=== PATIENT | female | born 1960 | race Caucasian/White ===

== ENCOUNTER 2021-05-01 22:43 | Inpatient (IN) | payer OTHER ==
[~2021-05-01] VITALS: Ht 160 cm; Wt 106.4 kg
[2021-05-01 22:43] VITALS: BP 141/90
[~2021-05-01 22:43] MED LIST: ASPI-929 PO; ATOR20TA PO; CLOP75TA PO; DABI150C PO; FAMO-75 PO; GABA600T7 PO; METO25TA4 PO; MORP100T27 PO; SOTA80TA PO
--- NOTE | 2021-05-01 22:43 | NUR ---
ARRIVAL ARRIVED VIA EMS. ALERT AND ORIENTED X3. PRODUCTIVE COUGH WITH CLEAR SPUTUM, CONGESTION, AND EDEMA TO LOWER EXTREMITIES X2. TEMP 97.6, O2 SAT 94%.
[2021-05-02] VITALS (7 sets, daily range): BP systolic 130–160; BP diastolic 78–91
[2021-05-02 00:05] LABS: BASOPHIL % 0.3 % (0.0-0.2); EOSINOPHIL # 0.1 10^3/uL (0.0-0.2); EOSINOPHIL % 1.2 % (0.0-5.0); LYMPHOCYTES # 0.99 10^3/uL1 (1.0-4.8); LYMPHOCYTES % 10.6 % (24.0-44.0); MEAN CORP HGB 27.2 pg (26-34); MONOCYTES # 0.4 10^3/uL (0.3-0.8); MONOCYTES % 3.9 % (5.0-12.0); NEUTROPHIL # 7.8 10^3/uL (1.8-7.7); NEUTROPHILS % 83.9 % (41.0-85.0); PLATELET COUNT 275 10^3/uL (150-400); RED CELL DISTRIBUTION WIDTH 13.5 % (11.5-14.5)
--- NOTE | 2021-05-02 00:15 | NUR ---
EKG EKG COMPLETED.
--- NOTE | 2021-05-02 00:16 | ER.PDOC ---
General Chief Complaint: Requesting Medical Care Stated Complaint: DIFF BREATHING Time seen by MD: 23:45 Source: patient Exam Limitations: no limitations History of Present Illness Initial Comments Difficulty breathing since this morning. Patient has a 30-year pack smoking history. She also has CHF and A. fib. Patient received Lasix 40 mg IV and breathing treatment in the ambulance. Severity: moderate Prior Episodes/Possible Cause: occasional episodes, chronic episodes Modifying Factors: improves with coughing Associated Symptoms: edema, wheezing Prior symptoms/Treatment: Similar symptoms previous, Recenly Seen, Treated by Doctor, Recently Hospitalized Allergies: Coded Allergies: Sulfa (Sulfonamide Antibiotics) (Verified Allergy, Unknown, 07/22/16) Home Meds Active Scripts Famotidine (PEPCID) 20 Mg Tablet, 1 TAB PO BID, #60 TAB 2 Refills Prov:MARILIA HONG MD 10/27/20 Atorvastatin 20MG (LIPITOR 20MG) 20 Mg Tablet, 40 MG PO HS for 30 Days, #30 TAB Prov:MARILIA HONG MD 10/27/20 Clopidogrel Bisulfate (CLOPIDOGREL) 75 Mg Tablet, 75 MG PO DAILY for 30 Days, #30 TAB Prov:MARILIA HONG MD 10/27/20 Aspirin (ASPIRIN EC) 81 Mg Tablet.dr, 81 MG PO DAILY for 30 Days, #30 TAB 2 Refills Prov:MARILIA HONG MD 10/27/20 Reported Medications Dabigatran Etexilate Mesylate (PRADAXA) 150 Mg Capsule, 1 CAP PO BID, #180 CAP 1 Refill 07/22/16 Morphine Sulfate (MS CONTIN) 100 Mg Tablet.er, 1 TAB PO BID, #60 TAB 07/22/16 Sotalol Hcl (SOTALOL) 80 Mg Tablet, 1 TAB PO BID, #180 TAB 3 Refills 07/22/16 Gabapentin (GABAPENTIN) 600 Mg Tablet, 1 TAB PO BID, #90 TAB 3 Refills 07/22/16 Past Medical History Medical History: arrhythmia, congestive heart failure, hypertension, other Surgical History: cholecystectomy, , tonsillectomy Family History Significant Family History: no pertinent family hx Social History Smoking: greater than 1 pack/day Alcohol Use: none Drug Use: none Review of Systems Constitutional: no symptoms reported EENTM: no symptoms reported Respiratory: see HPI Cardiovascular: no symptoms reported Gastrointestinal: no symptoms reported All Other Systems: Reviewed and Negative Physical Exam General Appearance: No Apparent Distress, WD/WN Neck: Non-Tender, Full Range of Motion, Supple, Normal Inspection Respiratory: chest non-tender, no respiratory distress, no accessory muscle use, decreased breath sounds Cardiovascular: Normal Peripheral Pulses, Regular Rate, Rhythm, No Edema, No Gallop, No JVD, No Murmur Gastrointestinal: Normal Bowel Sounds, No Organomegaly, No Pulsatile Mass, Non Tender, Soft Extremities: Normal Range of Motion, Non-Tender, Normal Inspection, No Calf Tenderness, Normal Capillary Refill, Pedal Edema Neurologic/Psychiatric: termite technician II-XII NML as Tested, No Motor/Sensory Deficits, Alert, Normal Mood/Affect, Oriented x 3 Skin: Normal Color, Warm/Dry Results/Orders Results/Orders Orders - YUDELKA HOFFMANN MD Cbc With Auto Diff (05/01/21 23:18) Comprehensive Metabolic Panel (05/01/21 23:18) Creatine Kinase (05/01/21 23:18) Creatine Kinase Mb (05/01/21:18) Probnp B-Type Scarifier Operator (05/01/21 23:18) PT (05/01/21 23:18) Partial Thromboplastin Time. (05/01/21 23:18) Ekg-Routine (05/01/21 23:18) Xr Chest 1v (05/01/21 23:18) Troponin I High Sensitivity (05/01/21 23:18) Covid19 Antigen [place] (05/01/21 23:38) Arterial Blood Gas (05/01/21 23:39) Admit Orders (05/02/21 01:37) Bedrest With Brp (05/02/21 01:37) Scd's While In Bed (05/02/21 01:37) Potassium Chloride (Klor-Con 10) (05/02/21 01:39) Vital Signs Date Time Temp Pulse Resp B/P (MAP) Pulse Ox O2 Delivery O2 Flow Rate FiO2 05/02/21 00:02 97.6 74 20 94 05/01/21 22:43 97.6 74 20 05/01/21 22:43 97.6 69 20 141/90 (107) 94 Room Air Laboratory Tests Test 05/01/21 00:13 05/01/21 23:50 05/02/21 00:00 SARS-CoV-2 Antigen (Rapid) NEGATIVE (NEGATIVE) White Blood Count 9.3 10^3/uL (4.5-11.0) Red Blood Count 5.96 10^6/uL (4.00-5.20) H Hemoglobin 16.2 g/dL (12.0-15.0) H Hematocrit 52.7 % (36.0-46.0) H Mean Corpuscular Volume 88.4 fL (78-100) Mean Corpuscular Hemoglobin 27.2 pg (26-34) Mean Corpuscular Hemoglobin Concent 30.7 g/dL (33-36.5) L Red Cell Distribution Width 13.5 % (11.5-14.5) Platelet Count 275 10^3/uL (150-400) Mean Platelet Volume 9.7 fL (7.8-11.0) Neutrophils (%) (Auto) 83.9 % (41.0-85.0) Lymphocytes (%) (Auto) 10.6 % (24.0-44.0) L Monocytes (%) (Auto) 3.9 % (5.0-12.0) L Neutrophils # (Auto) 7.8 10^3/uL (1.8-7.7) H Lymphocytes # (Auto) 0.99 10^3/uL1 (1.0-4.8) L Monocytes # (Auto) 0.4 10^3/uL (0.3-0.8) Absolute Immature Granulocyte (auto 0.01 10^3 u/L (0-2) Absolute Eosinophils (auto) 0.1 10^3/uL (0.0-0.2) Immature Granulocytes % 0.10 % (0.00-0.50) Eosinophils % 1.2 % (0.0-5.0) Basophils % 0.3 % (0.0-0.2) H Basophils # 0.0 10^3/uL (0.0-0.1) Prothrombin Time 12.6 SEC (9.6-12.0) H Prothrombin Time INR (Non-Therap) 1.2 Activated Partial Thromboplast Time 36.8 SEC (24.67-30.72) Sodium Level 137 mmol/L (132-145) Potassium Level 3.3 mmol/L (3.6-5.2) L Chloride Level 96.0 mmol/L (96-109) Carbon Dioxide Level 30.1 mmol/L (20.0-32) Anion Gap 14.2 Blood Urea Nitrogen 6 mg/dL (7-18) L Creatinine 0.82 mg/dL (0.59-1.40) Estimated GFR () 85.5 (>/=60) Est GFR (CKD-EPI)(Non-Afr [place]) 70.6 (>/=60) BUN/Creatinine Ratio 7.0 Glucose Level 126 mg/dL (70-110) H Calcium Level 9.0 mg/dL (8.4-10.5) Total Bilirubin 1.3 mg/dL (0.2-1.0) H Aspartate Amino Transferase (AST) 18 U/L (0-35) Alanine Aminotransferase (ALT) 17 U/L (12-78) Alkaline Phosphatase 136 U/L (50-136) Total Creatine Kinase 37 U/L (26-192) Creatine Kinase MB 1.0 ng/mL (0.5-3.6) Troponin I High Sensitivity 5 ng/L (0-50) Pro-B-Type Natriuretic Peptide 1412 pg/mL (0-125) H Total Protein 8.3 g/dL (6.4-8.2) H Albumin 3.6 g/dL (3.4-5.0) Globulin 4.7 Albumin/Globulin Ratio 0.765 Blood Gas Sample Site RT RADIAL ARTERY Blood pH 7.434 (7.350-7.450) Blood Gas PCO2 33.3 mmHg (35.0-45.0) L Blood Gas PO2 53.2 mmHg (80.0-100.0) L Blood Gas HCO3 21.8 mmol/L (22.0-26.0) L Blood Gas Base Excess -1.5 mmol/L (-2.0-2.0) Rahat Test POSITIVE Arterial Blood Oxygen Saturation 87.0 % (94.0-97.00) L Deoxyhemoglobin 12.6 % (0.0-5.0) H Carboxyhemoglobin 2.7 % (0.0-3.9) Methemoglobin 0.3 % (0.00-5.0) Total Hemoglobin 16.9 % (12.0-17.8) Total Oxygen Concentration 20.0 % (13.5-17.5) H Blood Gas Temperature 37.0 FiO2 21 % (20-101) Total Carbon Dioxide 22.8 mmol/L (23-27) L EKG/XRAY/CT/US EKG: no ST T wave changes EKG Comments: HR 62, A fib ER DEPART Departure Time of Disposition: 01:34 Disposition: 09 ADMITTED INPATIENT Impression: Primary Impression: Acute respiratory failure with hypoxia Additional Impression: CHF exacerbation Condition: Stable Referrals: CHRISTIAN JOVEL PA-C (PCP) PRIMARY CARE PROVIDER Comments Admitted to Dr. Lara Duration or Time Spent with Pa: 60 min Critical Care Note Total Time (mins): 60 Problem Qualifiers Additional Impression: CHF exacerbation Heart failure type: unspecified Qualified Codes: I50.9 - Heart failure, unspecified YUDELKA HOFFMANN MD May 02, 2021 00:16
[2021-05-02 00:34] LABS: CARBON DIOXIDE 30.1 mmol/L (20.0-32)
[2021-05-02 01:25] LABS: ABG PCO2 33.3 mmHg (35.0-45.0); ABG PH 7.434 (7.350-7.450); BE(B) -1.5 mmol/L (-2.0-2.0); HCO3act 21.8 mmol/L (22.0-26.0); pO2 53.2 mmHg (80.0-100.0)
[2021-05-02] MEDS ORDERED: KLOR-CON 10 PO STA (01:39)
[2021-05-02] MEDS ORDERED: KLOR-CON 10 PO ONE (02:24)
--- NOTE | 2021-05-02 02:30 | NUR ---
DIET SANDWHICH, CHIPS, AND FRUIT CUP WITH FLUIDS OFFERED.
[2021-05-02] MEDS ORDERED: GABA600T7 PO (02:35)
[2021-05-02] MEDS ORDERED: FURO-81 PO (02:35)
[2021-05-02] MEDS ORDERED: BUPR8TAB SL (02:35)
--- NOTE | 2021-05-02 02:41 | NUR ---
REPORT CALLED REPORT TO JOSE R MOON. TRANSPORTED TO MED SURG VIA STRETCHER BY Gisselle MUNIZ RN.
--- NOTE | 2021-05-02 07:34 | DIREP ---
PROCEDURE:CHEST 1 VIEW COMPARISON:[facility], CR, XRAY CHEST 2 VWS, 01/11/2021, 03:20 PM. INDICATIONS:Shortness of breath FINDINGS: Portable frontal view of the chest obtained at 11:28 p.m. On 05/01/2021 is provided for review at 7:27 a.m. On 05/02/2021. LUNGS/PLEURA:Shallow depth of inspiration with crowding of the central pulmonary markings. Mild subsegmental atelectasis and/or scarring in the lung bases. Otherwise clear. No focal consolidation, pleural, or pneumothorax. VASCULATURE:Normal. Unremarkable pulmonary vasculature. CARDIAC:Heart size is accentuated by low lung volumes and portable technique, but felt within normal limits. MEDIASTINUM:Normal. No visible mass or adenopathy. BONES:Stable degenerative changes involving the shoulders and thoracic spine. No acute abnormality. OTHER:Monitor leads overlie the chest. CONCLUSION: 1. Low lung volumes with mild subsegmental atelectasis and/or scarring in the lung bases. The lungs are otherwise clear. 2. Heart size and pulmonary vasculature are within normal limits given low lung volumes and portable technique. Dictated by: Sd Aguirre MD on 05/02/2021 at 07:31 AM
--- NOTE | 2021-05-02 07:59 | PCM.EKG ---
[facility] Test Date: 2021-05-02 Test Time: 00:42:33 Pat Name: KINSEY JOSEPH Department: Room: 338 Gender: F Straightener Hand: : 1960 Requested By: YUDELKA HOFFMANN Order Number: [id number] Reading MD: Yudelka HOFFMANN Measurements Intervals [place] Rate: 62 P: MD: QRS: 27 QRSD: 92 T: -30 QT: 452 QTc: 459 Interpretive Statements Atrial fibrillation Nonspecific T abnormalities, diffuse leads Compared to ECG 10/23/2020 01:54:15 T-wave abnormality now present Electronically Signed On 05-03-2021 7:16:13 BRUSH MAKER by Yudelka HOFFMANN Please click the below link to view image of tracing.
[2021-05-02] MEDS ORDERED: KCL 20MEQ/100ML 100 ML IV ONE (11:30)
[2021-05-02] MEDS ORDERED: KLOR-CON 10 PO SCH (11:30)
[2021-05-02] MEDS ORDERED: LASIX PO SCH ×2 (11:30→13:11)
[2021-05-02] MEDS ORDERED: MAGNESIUM-D5W 1 GM/100 ML SOLN 100 ML IV ONE ×2 (11:30→17:31)
--- NOTE | 2021-05-02 11:53 | NUR ---
DISCHARGE PLANNING CM VISITED WITH PATIENT ABOUT DISCHARGE PLANS AND NEEDS. PATIENT CURRENTLY [email or web address] WITH SPOUSE AND GRANDSON IN [place]. PATIENT IND WITH [facility] AND SEE'S CHRISTIAN JOVEL NP .PATIENT EDUCATED ON RESOURCES AVAILABLE. REPORTS HAS HAD [facility] IN PAST AND DENIES ANY SERVICES OFFERED. PATIENT SIGNS [facility] CHOICE LETTER OF THE SAME. AGREEABLE TO HAVE O2 ROTECHFOR O2 @DISCHARGE IF NEEDED. DENIES ANY OTHER CM NEEDS.
[2021-05-02] MEDS ORDERED: LASIX ONE (12:44)
[2021-05-02] MEDS ORDERED: NS 250ML 250 ML ONE (12:45)
[2021-05-02] MEDS: BETAPACE PO SCH ×2 (12:48→21:51)
--- NOTE | 2021-05-02 14:52 | PCM.HP ---
HISTORY & PHYSICAL HISTORY & PHYSICAL DATE OF ADMISSION: 05/01/2021 Date of service 05/02/2021 CHIEF COMPLAINT: Woke up with shortness of breath Last night HISTORY OF PRESENT ILLNESS: 60-year-old female with previous history of coronary artery disease status post PTCA and stent placement to diagonal artery diastolic congestive heart failure possible peripheral arterial disease and chronic atrial fibrillation came to the ER with a complaint of this shortness of breath last night and patient was evaluated found to have elevated BNP and volume overloaded therefore patient Was admitted for further management patient denies any chest pain have intermittent cough has orthopnea and denies any effort angina but has effort dyspnea since last night with minimal exertion has been having Severe shortness of breath No fever chills or rigors have clear sputum with cough intermittently, ALLERGIES: Allergic to sulfa medication CURRENT MEDICATIONS: Aspirin 81 mg daily, atorvastatin 40 mg daily, clopidogrel 75 mg daily, Lasix 40 mg daily, Neurontin 600 mg 3 times daily, sotalol 80 mg p.o. twice daily, Pr adaxa 150 mg twice daily PAST MEDICAL HISTORY: Chronic diastolic congestive heart failure Chronic atrial fibrillation Coronary artery disease s/p PTCA and stent placement Tobacco use disorder Chronic pain syndrome Dyslipidemia SOCIAL HISTORY: Still smoke half a pack a day No alcohol intake Living with her and grandson No regular exercise FAMILY HISTORY: Reviewed with patient noncontributory to the current illness REVIEW OF SYSTEMS: Intended to lose weight, normal appetite , Constipation,Nocturia several times, denies effort angina but complained of effort dyspnea No fever chills or rigors, cough with orthopnea and effort dyspnea,Dependent edema,Orthopnea VITAL SIGNS: Vital Signs Date Time Temp Pulse Resp B/P (MAP) Pulse Ox O2 Delivery O2 Flow Rate FiO2 05/02/21 12:48 157/87 05/02/21 12:37 97.9 63 18 157/87 (110) 95 05/02/21 09:31 18 92 05/02/21 09:30 63 18 92 Room Air 05/02/21 08:07 97.7 60 18 160/91 (114) 94 05/02/21 04:00 Mask 3.00 05/02/21 03:58 98.8 62 19 147/79 (101) 93 Mask 3.00 05/02/21 02:45 97.6 91 24 144/86 (105) 94 Room Air 05/02/21 00:02 97.6 74 20 94 05/01/21 22:43 97.6 74 20 05/01/21 22:43 97.6 69 20 141/90 (107) 94 Room Air PHYSICAL EXAMINATION: Sitting comfortably at the edge of the bed not dyspneic not cyanotic HEENT poor dentition pupil react light anicteric sclera no JVD noted neck supple Heart S1-S2 heard irregular rhythm no murmur appreciated Lungs bibasilar Rales present up to mid zone, No wheezes heard Abdomen obese nontender bowel sounds present no organomegaly appreciated Extremities 1+ edema present bilaterally no calf tenderness elicited LABORATORY DATA: Laboratory Tests Test 05/01/21 00:13 05/01/21 23:50 05/02/21 00:00 SARS-CoV-2 Antigen (Rapid) NEGATIVE (NEGATIVE) White Blood Count 9.3 10^3/uL (4.5-11.0) Red Blood Count 5.96 10^6/uL (4.00-5.20) Hemoglobin 16.2 g/dL (12.0-15.0) Hematocrit 52.7 % (36.0-46.0) Mean Corpuscular Volume 88.4 fL (78-100) Mean Corpuscular Hemoglobin 27.2 pg (26-34) Mean Corpuscular Hemoglobin Concent 30.7 g/dL (33-36.5) Red Cell Distribution Width 13.5 % (11.5-14.5) Platelet Count 275 10^3/uL (150-400) Mean Platelet Volume 9.7 fL (7.8-11.0) Neutrophils (%) (Auto) 83.9 % (41.0-85.0) Lymphocytes (%) (Auto) 10.6 % (24.0-44.0) Monocytes (%) (Auto) 3.9 % (5.0-12.0) Neutrophils # (Auto) 7.8 10^3/uL (1.8-7.7) Lymphocytes # (Auto) 0.99 10^3/uL1 (1.0-4.8) Monocytes # (Auto) 0.4 10^3/uL (0.3-0.8) Absolute Immature Granulocyte (auto 0.01 10^3 u/L (0-2) Absolute Eosinophils (auto) 0.1 10^3/uL (0.0-0.2) Immature Granulocytes % 0.10 % (0.00-0.50) Eosinophils % 1.2 % (0.0-5.0) Basophils % 0.3 % (0.0-0.2) Basophils # 0.0 10^3/uL (0.0-0.1) Prothrombin Time 12.6 SEC (9.6-12.0) Prothrombin Time INR (Non-Therap) 1.2 Activated Partial Thromboplast Time 36.8 SEC (24.67-30.72) Sodium Level 137 mmol/L (132-145) Potassium Level 3.3 mmol/L (3.6-5.2) Chloride Level 96.0 mmol/L (96-109) Carbon Dioxide Level 30.1 mmol/L (20.0-32) Anion Gap 14.2 Blood Urea Nitrogen 6 mg/dL (7-18) Creatinine 0.82 mg/dL (0.59-1.40) Estimated GFR () 85.5 (>/=60) Est GFR (CKD-EPI)(Non-Afr [place]) 70.6 (>/=60) BUN/Creatinine Ratio 7.0 Glucose Level 126 mg/dL (70-110) Calcium Level 9.0 mg/dL (8.4-10.5) Total Bilirubin 1.3 mg/dL (0.2-1.0) Aspartate Amino Transf (AST/SGOT) 18 U/L (0-35) Alanine Aminotransferase (ALT/SGPT) 17 U/L (12-78) Alkaline Phosphatase 136 U/L (50-136) Total Creatine Kinase 37 U/L (26-192) Creatine Kinase MB 1.0 ng/mL (0.5-3.6) Troponin I High Sensitivity 5 ng/L (0-50) Pro-B-Type Natriuretic Peptide 1412 pg/mL (0-125) Total Protein 8.3 g/dL (6.4-8.2) Albumin 3.6 g/dL (3.4-5.0) Globulin 4.7 Albumin/Globulin Ratio 0.765 Blood Gas Sample Site RT RADIAL ARTERY Blood Gas pH 7.434 (7.350-7.450) Blood Gas PCO2 33.3 mmHg (35.0-45.0) Blood Gas PO2 53.2 mmHg (80.0-100.0) Blood Gas HCO3 21.8 mmol/L (22.0-26.0) Blood Gas Base Excess -1.5 mmol/L (-2.0-2.0) Rahat Test POSITIVE Arterial Blood Oxygen Saturation 87.0 % (94.0-97.00) Deoxyhemoglobin 12.6 % (0.0-5.0) Carboxyhemoglobin 2.7 % (0.0-3.9) Methemoglobin 0.3 % (0.00-5.0) Total Hemoglobin 16.9 % (12.0-17.8) Total Oxygen Concentration 20.0 % (13.5-17.5) Blood Gas Temperature 37.0 FiO2 21 % (20-101) Total Carbon Dioxide 22.8 mmol/L (23-27) IMAGING: CONCLUSION: 1. Low lung volumes with mild subsegmental atelectasis and/or scarring in the lung bases. The lungs are otherwise clear. 2. Heart size and pulmonary vasculature are within normal limits given low lung volumes and portable technique. SUMMARY:60-year-old female with previous history of coronary artery disease diastolic heart failure and chronic tobacco use disorder presented to the ER with the complaint of progressively worsening shortness of breath and found to have elevated BNP admitted for further management ASSESSMENT/PLAN: Acute hypoxemic respiratory failure --Resolving Atelectasis Coronary artery disease with atypical presentation we will trend the troponin and consult spot facer Tobacco use disorder Dyslipidemia Hypertension Chronic atrial fibrillation Plan: Continue home medication, add Pulmicort aerosol EZ Pap treatment with chest physical therapy ,Consult cardiology Serial troponin DC planning in 24 to 48 hours LALA JARVIS MD May 02, 2021 14:51
[2021-05-02] MEDS ORDERED: PULMICORT IH ONE (16:26)
[2021-05-02] MEDS: PULMICORT IH SCH (16:41)
[2021-05-02] MEDS: NEURONTIN PO SCH ×2 (17:00→21:51)
[2021-05-02] MEDS ORDERED: NS 500ML 500 ML IV ONE (17:31)
[2021-05-02] MEDS ORDERED: MELATONIN PO PRN (21:00)
[2021-05-02] MEDS ORDERED: LIPITOR PO SCH (21:00)
[2021-05-03 00:37] VITALS: BP 112/73
--- NOTE | 2021-05-03 01:11 | CNH ---
DATE OF CONSULTATION: 05/02/2021 DICTATOR NAME: RAMBO ALVARADO DO REASON FOR CONSULTATION: Acute decompensated heart failure secondary to diastolic dysfunction. HISTORY OF PRESENT ILLNESS: This is a 60-year-old female who presented to the Emergency Room with progressively worsening shortness of breath with orthopnea and paroxysmal nocturnal dyspnea, which she has been experiencing for the last few days. Upon presentation, proBNP was noted to be significantly elevated at 1412. A diagnosis of acute decompensated heart failure was made and a consultation was placed to Cardiology service for evaluation. PAST MEDICAL HISTORY: Significant for: 1. Coronary artery disease with recent PCI to the first diagonal artery with a Resolute [place] 2.25 x 18 mm drug-eluting stent done 10/2020. 2. Chronic atrial fibrillation. 3. Chronic congestive heart failure. 4. Severe tricuspid regurgitation. 5. Hypertension. 6. Chronic opiate dependence. PAST SURGICAL HISTORY: 1. Cholecystectomy. 2. . 3. Tonsillectomy. 4. Hysterectomy. MEDICATIONS: She takes at home: 1. Pradaxa 150 mg p.o. b.i.d. 2. Sotalol 80 mg p.o. b.i.d. 3. Gabapentin. 4. Plavix 75 mg p.o. every day. 5. Aspirin 81 mg p.o. every day. 6. Lipitor 20 mg p.o. at bedtime. 7. Pepcid. ALLERGIES: SHE IS ALLERGIC TO SULFA MEDICATIONS. FAMILY HISTORY: She denies any family history of premature coronary artery disease or sudden cardiac . SOCIAL HISTORY: She admits to tobacco abuse, smokes 1 pack of cigarettes daily. Denies alcohol use, denies illicit drug use. REVIEW OF SYSTEMS: As per HPI and as per previous records. All systems are reviewed and negative for interval change. PHYSICAL EXAMINATION: VITAL SIGNS: Blood pressure is 130/78, respiratory rate is 18, pulse is 72, temperature is 98, pulse oximetry is 94% on room air. GENERAL: She is in no apparent distress, alert and oriented x3. HEENT: Normocephalic, atraumatic. Extraocular muscles intact. Pupils equally reactive to light and accommodation. CARDIAC: S1, S2, irregularly irregular plus 3/6 holosystolic murmur. No gallops, rubs or clicks. LUNGS: Decreased breath sounds bilaterally. No wheezing, rhonchi or rales. ABDOMEN: Soft, obese, nontender, nondistended. Positive bowel sounds in all 4 quadrants. EXTREMITIES: No cyanosis, no clubbing, +1 pitting edema bilaterally. NEUROLOGIC: No neurological deficits. Sensation is intact. IMPRESSION: 1. Acute decompensated heart failure secondary to diastolic dysfunction. 2. Left ventricular ejection fraction of 55-60%, on 2D echo done 10/2020. 3. Known history of coronary artery disease status post percutaneous coronary intervention to the first diagonal artery with a Resolute [place] 2.25 x 18 mm drug-eluting stent done 10/2020. 4. Chronic atrial fibrillation, on Pradaxa for oral anticoagulation. 5. Chronic congestive heart failure. 6. Hypertension. 7. Severe tricuspid regurgitation. 8. Chronic opioid dependence. RECOMMENDATIONS: This is a 60-year-old female who presented to the hospital with progressively worsening shortness of breath, orthopnea and paroxysmal nocturnal dyspnea. She was noted to have acute decompensated heart failure secondary to diastolic dysfunction. She is currently on diuretic therapy. At this time, she appears to be euvolemic. I would recommend to continue her home medications. She is currently on sotalol 80 mg p.o. b.i.d. for chronic atrial fibrillation as well as Pradaxa 150 mg p.o. b.i.d. Please continue all home cardiac medications. She recently underwent PCI to the first diagonal artery with a drug-eluting stent. She is currently on Plavix 75 mg p.o. every day as well as aspirin 81 mg p.o. every day. Recent 2D echo shows normal left ventricular ejection fraction. I would recommend strict I's and O's, daily weights. Fluid and sodium restriction. No invasive cardiac workup is necessary at this time. She is stable for discharge from a cardiovascular standpoint to follow up with me in the office in 1-2 weeks. Annie HENDERSON D.O. DR: CORAL LEUNG: [id number] RECEIPT: [id number]
[2021-05-03 04:48] LABS: BASOPHIL % 0.3 % (0.0-0.2); EOSINOPHIL # 0.1 10^3/uL (0.0-0.2); EOSINOPHIL % 1.7 % (0.0-5.0); LYMPHOCYTES # 2.28 10^3/uL1 (1.0-4.8); LYMPHOCYTES % 29.6 % (24.0-44.0); MEAN CORP HGB 27.9 pg (26-34); MONOCYTES # 0.5 10^3/uL (0.3-0.8); NEUTROPHIL # 4.7 10^3/uL (1.8-7.7); NEUTROPHILS % 61.4 % (41.0-85.0); PLATELET COUNT 221 10^3/uL (150-400); RED CELL DISTRIBUTION WIDTH 13.5 % (11.5-14.5)
[2021-05-03 05:07] LABS: CARBON DIOXIDE 29.4 mmol/L (20.0-32)
[2021-05-03 05:08] LABS: CALCIUM 8.9 mg/dL (8.4-10.5)
[2021-05-03 05:49] VITALS: BP 91/50
[2021-05-03 07:30] VITALS: BP 127/79
[2021-05-03] MEDS ORDERED: ZESTRIL PO SCH (09:00)
[2021-05-03] MEDS ORDERED: ASPIRIN EC PO SCH (09:00)
[2021-05-03] MEDS ORDERED: PLAVIX PO SCH (09:00)
[2021-05-03] MEDS: NEURONTIN PO SCH (10:05)
[2021-05-03] MEDS: BETAPACE PO SCH (10:05)
[2021-05-03] MEDS: PULMICORT IH SCH (10:20)
[2021-05-03 11:35] VITALS: BP 119/70
--- NOTE | 2021-05-03 13:35 | PCM.EKG ---
[facility] Test Date: 2021-05-03 Test Time: 13:32:17 Pat Name: KINSEY JOSEPH Department: Room: 338 A Gender: F Choral Teacher: : 1960 Requested By: LALA JARVIS Order Number: [id number] Reading MD: Measurements Intervals [place] Rate: 52 P: VA: QRS: 67 QRSD: 93 T: 12 QT: 477 QTc: 444 Interpretive Statements Atrial fibrillation Baseline wander in lead(s) V1 Compared to ECG 05/02/2021 00:42:33 T-wave abnormality no longer present Please click the below link to view image of tracing.
[2021-05-03] MEDS ORDERED: KLOR-CON 10 PO STA (13:46)
[2021-05-03] MEDS ORDERED: BUDE0.5A3 IH (15:18)
[2021-05-03] MEDS ORDERED: MELA3TAB31 PO (15:18)
[2021-05-03] MEDS ORDERED: POTA-129 PO (15:18)
[2021-05-03] MEDS ORDERED: LISI20TA21 PO (15:18)
--- NOTE | 2021-05-03 15:23 | PRM.DC ---
DISCHARGE SUMMARY Y Date of Admission:05/02/2021 Date of Discharge:05/03/2021 FINAL DIAGNOSES: Acute hypoxemic respiratory failure-secondary to pulmonary edema/Atelectasis resolved, room air O2 saturation is 91% at rest and 94% while walking Atelectasis of the lungs as per chest [id number] improved Coronary artery disease with atypical presentation , with negative troponin Tobacco use disorder Hypertension Chronic atrial fibrillation Chronic diastolic ventricular failure with acute exacerbation resolved Morbid obesity BMI 41.6 Hypokalemia replaced Please refer to my History and Physical to the point of my impression. HOSPITAL COURSE: 60-year-old female with previous history of hypertension diastolic h eart failure coronary artery disease s/p recent PTCA and stent placement to the first diagonal artery dyslipidemia and chronic atrial fibrillation presented to the ER with shortness of breath and hypoxemia patient was admitted started on IV Lasix and aerosol breathing treatment for bronchodilator and chest physiotherapy overnight the patient condition improved patient also was cleared by speech professor for discharge with home medication patient found to have electrolyte imbalance with hypokalemia that was replaced orally, patient was strongly advised to stop smoking and follow-up with PCP and contract consultant as instructed, she also was advised to lose weight and regular exercise was recommended, patient voiced understanding and agree with the plan of management and discharge arrangement LALA JARVIS MD May 03, 2021 15:23
[2021-05-03 15:31] VITALS: BP 90/57
[2021-05-03 16:39] VITALS: BP 90/57
--- NOTE | 2021-05-03 16:42 | NUR ---
DISCHARGE PATIENT BEING DISCHARGED HOME AT THIS TIME IN STABLE CONDITION. PATIENT DENIES NEEDING ANY ADDITIONAL RESOURCES AT THIS TIME. PATIENT WAS ASSISTED DOWNSTAIRS TO PRIVATE VEHICLE VIA WHEELCHAIR. RELINQUISHED CARE FOR PATIENT AT THIS TIME.
[2021-05-04] MEDS ORDERED: KLOR-CON 10 PO SCH (09:00)
== END 2021-05-03 16:37 | disposition home or self-care (01) | DRG 291 ==
LOC: EDBD 22:43 → ER 22:43 → MS 05-02 01:47
PROVIDERS: ADMIT Internal Medicine; ATTEND Internal Medicine
DX: I11.0 Hypertensive heart disease with heart failure (principal); J96.01 Acute respiratory failure with hypoxia; I50.33 Acute on chronic diastolic (congestive) heart failure; J98.11 Atelectasis; I48.20 Chronic atrial fibrillation, unspecified; F11.20 Opioid dependence, uncomplicated; Z68.41 Body mass index [BMI] 40.0-44.9, adult; I25.10 Atherosclerotic heart disease of native coronary artery without angina pectoris; E78.5 Hyperlipidemia, unspecified; E66.01 Morbid (severe) obesity due to excess calories; G89.4 Chronic pain syndrome; I07.1 Rheumatic tricuspid insufficiency; F17.210 Nicotine dependence, cigarettes, uncomplicated; Z20.822 Contact with and (suspected) exposure to COVID-19; E87.6 Hypokalemia; Z79.01 Long term (current) use of anticoagulants; Z90.710 Acquired absence of both cervix and uterus; Z95.5 Presence of coronary angioplasty implant and graft; Z88.2 Allergy status to sulfonamides; Z79.899 Other long term (current) drug therapy; Z90.49 Acquired absence of other specified parts of digestive tract; Z98.891 History of uterine scar from previous surgery
CPT/HCPCS: 36415; 71045; 80053; 82550; 82553; 82803; 83735; 83880; 84100; 84484; 85025; 85610; 85730; 87426; 93005; 94640; 99291; G0378; J3475; J3490; J7040; J7050; J7627; J3480